=== PATIENT | female | born 1950 | race Hispanic/Latino ===

== ENCOUNTER 2017-10-27 15:51 | Emergency (ER) | payer OTHER | END 2017-10-27 16:30 | disposition home or self-care (01) | LOC: EDH 15:51 | DX: S63.8X2A Sprain of other part of left wrist and hand, initial encounter (principal); E11.9 Type 2 diabetes mellitus without complications; I10 Essential (primary) hypertension; Z90.49 Acquired absence of other specified parts of digestive tract; W18.39XA Other fall on same level, initial encounter; Y93.01 Activity, walking, marching and hiking; Y92.89 Other specified places as the place of occurrence of the external cause; Y99.8 Other external cause status | CPT/HCPCS: 73110; 73130 ==

== ENCOUNTER 2018-03-12 22:57 | Emergency (ER) | payer OTHER ==
[2018-03-12] MEDS ORDERED: ONDANSETRON HCL 4 MG/2 ML VIAL ONE (23:23)
[2018-03-12 23:26] LABS: BASOPHILS % (AUTO) 1.4 % (0.0-5.0); EOSINOPHILS % (AUTO) 3.3 % (0.0-8.0); HEMATOCRIT 40.1 % (36-48); MEAN CORPUSCULAR HEMOGLOBIN 27.2 pg (27.0-33.0); MEAN CORPUSCULAR HGB CONC 32.1 g/dL (32.0-36.0); MEAN CORPUSCULAR VOLUME 84.8 fL (79-99); MONOCYTES % (AUTO) 6.3 % (3.0-13.0); PLATELET COUNT (AUTO) 340 K/uL (130-400); RED BLOOD CELL COUNT(AUTO) 4.73 MIL/uL (4.00-5.50); RED CELL DISTRIBUTION WIDTH 15.1 % (11.0-15.5); WHITE BLOOD COUNT (AUTO) 15.8 K/uL (4.8-10.8)
[2018-03-12] MEDS ORDERED: CEFTRIAXONE SODIUM 1 GM ONE (23:29)
[2018-03-12] MEDS ORDERED: METRONIDAZOLE 500 MG TABLET ONE (23:29)
[2018-03-12 23:41] LABS: ALBUMIN 3.8 g/dL (3.5-5.0); BILIRUBIN,TOTAL 0.5 mg/dL (0.2-1.0); CREATININE 1.5 mg/dL (0.5-1.5); TOTAL PROTEIN, SERUM 8.4 g/dL (6.0-8.3)
[2018-03-13 00:03] LABS: APPEARANCE,URINE Cloudy (CLEAR); BILIRUBIN,URINE Negative (NEGATIVE); COLOR,URINE Yellow (YELLOW); GLUCOSE, URINE (UA) Negative (NEGATIVE); KETONES,URINE Negative (NEGATIVE); LEUKOCYTE ESTERASE ,URINE Moderate (NEGATIVE); NITRATE,URINE Positive (NEGATIVE); OCCULT BLOOD,URINE Trace (NEGATIVE); PROTEIN,URINE 300 (NEGATIVE); UROBILINOGEN,URINE 0.2 mg/dL (0.2-1.0)
[2018-03-13 00:20] LABS: BACTERIA,URINE Many /HPF (None Seen); RBC,URINE 0-1 /HPF (0-1); SQUAMOUS EPITHELIAL CELL,UR Few /HPF (0-2)
== END 2018-03-13 00:38 | disposition home or self-care (01) ==
LOC: EDH 22:57
DX: K52.9 Noninfective gastroenteritis and colitis, unspecified (principal); E11.9 Type 2 diabetes mellitus without complications; I10 Essential (primary) hypertension; E78.5 Hyperlipidemia, unspecified
CPT/HCPCS: 36415; 80053; 81001; 83690; 85025; 96361; 96374; 96375; 99285; J0696; J2405; 93005

== ENCOUNTER → 2018-07-17 | Outpatient (CLI) | payer OTHER | END | disposition home or self-care (01) | LOC: OIH 09:44 | PROVIDERS: ATTEND Internal Medicine | DX: I10 Essential (primary) hypertension (principal) | CPT/HCPCS: 71046 ==

== ENCOUNTER → 2022-08-09 | Outpatient (CLI) | payer OTHER | END | disposition home or self-care (01) | LOC: RAH 14:56 | PROVIDERS: ATTEND Internal Medicine | DX: M70.62 Trochanteric bursitis, left hip (principal) | CPT/HCPCS: 73502 ==

== ENCOUNTER → 2023-01-23 | Outpatient (CLI) | payer OTHER | END | disposition home or self-care (01) | LOC: RAH 13:57 | PROVIDERS: ATTEND Urology | DX: N28.89 Other specified disorders of kidney and ureter (principal); K44.9 Diaphragmatic hernia without obstruction or gangrene; M47.815 Spondylosis without myelopathy or radiculopathy, thoracolumbar region; I70.90 Unspecified atherosclerosis; Z85.528 Personal history of other malignant neoplasm of kidney | CPT/HCPCS: 74150 ==

== ENCOUNTER → 2023-09-18 | Outpatient (CLI) | payer OTHER ==
[~2023-09-18] MED LIST: IOHEXOL-350 75 ML VIAL IV ONE
== END | disposition home or self-care (01) ==
LOC: RAH 10:40
PROVIDERS: ATTEND Urology
DX: Z85.528 Personal history of other malignant neoplasm of kidney (principal); Z90.49 Acquired absence of other specified parts of digestive tract
CPT/HCPCS: 74170; Q9967

== ENCOUNTER 2024-03-11 07:00 | Day surgery (SDC) | payer OTHER ==
[2024-03-05 12:28] LABS: BASOPHILS # (AUTO) 0.08 K/uL (0.00-0.20); BASOPHILS % (AUTO) 0.7 % (0.0-5.0); EOSINOPHILS # (AUTO) 0.39 K/uL (0.00-0.70); EOSINOPHILS % (AUTO) 3.5 % (0.0-8.0); IMMATURE GRANULOCYTE ABSOLUTE 0.05 K/uL (0-1); LYMPHOCYTES # (AUTO) 1.8 K/uL (1.0-4.8); LYMPHOCYTES % (AUTO) 16.4 % (21.0-51.0); MEAN CORPUSCULAR HEMOGLOBIN 28.6 pg (27.0-33.0); MEAN CORPUSCULAR HGB CONC 32.5 g/dL (32.0-36.0); MONOCYTES # (AUTO) 0.6 K/uL (0.1-1.0); MONOCYTES % (AUTO) 5.7 % (3.0-13.0); NEUTROPHILS # (AUTO) 8.1 K/uL (1.8-7.7); NEUTROPHILS % (AUTO) 73.2 % (40.0-77.0); PLATELET COUNT (AUTO) 316 K/uL (130-400); RED BLOOD CELL COUNT(AUTO) 4.09 MIL/uL (4.00-5.50); WHITE BLOOD COUNT (AUTO) 11.1 K/uL (4.8-10.8)
[2024-03-05 12:35] VITALS: BP 160/90; PULSE 99; RESP 16; TEMP 97.8
[2024-03-05 12:56] LABS: CREATININE 2.1 mg/dL (0.5-1.0); POTASSIUM 5.2 mmol/L (3.5-5.1)
[2024-03-05 13:08] LABS: APPEARANCE,URINE CLEAR (CLEAR); BILIRUBIN,URINE NEGATIVE (NEGATIVE); COLOR,URINE LIGHT-YELLOW (YELLOW); GLUCOSE, URINE (UA) NEGATIVE (NEGATIVE); KETONES,URINE NEGATIVE (NEGATIVE); LEUKOCYTE ESTERASE ,URINE 250 Leu/uL (NEGATIVE); NITRATE,URINE NEGATIVE (NEGATIVE); OCCULT BLOOD,URINE NEGATIVE (NEGATIVE); PROTEIN,URINE 100 mg/dL (NEGATIVE); UROBILINOGEN,URINE 0.2 mg/dL (0.2-1.0)
[2024-03-05 13:14] LABS: ADD UA MICROSCOPIC YES
[2024-03-05 13:19] LABS: RBC,URINE 0-1 /HPF (0-1); SQUAMOUS EPITHELIAL CELL,UR RARE /HPF (0-2)
[2024-03-11] VITALS (16 sets, daily range): BP systolic 124–182; BP diastolic 51–69; PULSE 76–84; RESP 14–18; TEMP 97.8–98.1
[~2024-03-11] VITALS: Ht 154.9 cm; Wt 85.8 kg
[~2024-03-11 07:00] MED LIST changes: +AEC81 PO; +ALLO300T2 PO; +ATOR40TA69 PO; +DILT240C81 PO; +ESCI-8 PO; +FOLI1TAB85 PO; +FURO20TA4 PO; +HYDR12.54 PO; -IOHEXOL-350 75 ML VIAL IV ONE; +IRBE75TA16 PO; +OXYB10TA30 PO; +SEMA0.258 SQ; +SODI650T PO
[2024-03-11] MEDS: cefTRIAXone 1G VIAL ONE (07:11)
[2024-03-11] MEDS ORDERED: LIDOCAINE PF 100MG/5ML (2%) SYRINGE 5ML ONE (07:18)
[2024-03-11] MEDS ORDERED: dexaMETHasone SOD PHOSPHATE 10MG/ML 1ML VIAL ONE (07:18)
[2024-03-11] MEDS ORDERED: FENTanyl CITRate PF 50 MCG/1 ML 2ML VIAL ONE (07:19)
[2024-03-11] MEDS ORDERED: proPOFol 10 MG/ML 20ML VIAL IV ONE (07:19)
[2024-03-11] MEDS ORDERED: MIDAZOLAM HCL 1 MG/ML 2ML VIAL ONE (07:19)
[2024-03-11] MEDS ORDERED: rocuRONium bROMide 10MG/1ML 5ML VL ONE (07:19)
[2024-03-11] MEDS ORDERED: ondanSETRON 4MG INJ ONE (07:19)
[2024-03-11] MEDS: BOTULINUM TOXIN TYPE A 100 UNITS/VIAL INJ ONE (09:25)
[2024-03-11] MEDS: 0.9%NACL 1000ML 1,000 ML IV ONE (09:26)
[2024-03-11] MEDS: MEPERIDINE-PF 25 MG/ML SYG ONE (10:00)
[2024-03-11] MEDS: hydrALAZine 20MG/ML VIAL ONE (10:04)
== END 2024-03-11 11:10 | disposition home or self-care (01) ==
LOC: DAH 07:00
PROVIDERS: ATTEND Urology
DX: N39.41 Urge incontinence (principal); R33.9 Retention of urine, unspecified; E11.9 Type 2 diabetes mellitus without complications; I10 Essential (primary) hypertension; J45.909 Unspecified asthma, uncomplicated; I25.2 Old myocardial infarction; I49.3 Ventricular premature depolarization; Z88.6 Allergy status to analgesic agent
CPT/HCPCS: 80048; 85025; 87086; 81001; 36415; 71045; 93005; 52287; 82948 ×2; A6260; A4663; J7120; J3010; J1100; J7030; J3490; J2001; J0360; J0696; J2250; J2704; J2405; J2175; J0585; A4358; A4215 ×2; A4930; A4223; A4213; A4222; A4221; A4600

== ENCOUNTER → 2024-04-23 | Outpatient (CLI) | payer OTHER | END | disposition home or self-care (01) | LOC: RAH 14:50 | PROVIDERS: ATTEND Urology | DX: K42.9 Umbilical hernia without obstruction or gangrene (principal); M47.815 Spondylosis without myelopathy or radiculopathy, thoracolumbar region; I70.90 Unspecified atherosclerosis; Z85.528 Personal history of other malignant neoplasm of kidney | CPT/HCPCS: 74150 ==